=== PATIENT | female | born 1950 | race Caucasian/White ===

== ENCOUNTER 2018-12-03 10:56 | Day surgery (SDC) | payer MEDICARE, OTHER ==
[2018-12-03] MEDS ORDERED: PROPOFOL 40 ML (12:29)
[2018-12-03] MEDS ORDERED: LIDOCAINE 2% (SDV) 5 ML INJ (12:30)
[2018-12-03] MEDS ORDERED: FENTAnyl 50 MCG/ML VIAL IV (13:00)
[2018-12-03] MEDS ORDERED: ACETAMINOPHEN 500 MG TAB PO (13:00)
[2018-12-03] MEDS ORDERED: ALBUTEROL 0.083% (NEB) 2.5 MG/3 ML AMP HHN (13:00)
[2018-12-03] MEDS ORDERED: ONDANSETRON 4 MG INJ IV (13:00)
== END 2018-12-03 14:54 | disposition home or self-care (01) ==
LOC: GIL 10:56
DX: K29.50 Unspecified chronic gastritis without bleeding (principal); E78.5 Hyperlipidemia, unspecified; J45.909 Unspecified asthma, uncomplicated; E11.9 Type 2 diabetes mellitus without complications
CPT/HCPCS: 43239; 82962; 88305; 88312